=== PATIENT | male | born 1950 | race Caucasian/White ===

== ENCOUNTER 2017-06-04 06:06 | Emergency (ER) | payer OTHER ==
--- NOTE | 2017-06-04 06:38 | EDM.PDOC ---
<Ryan Garcia - Last Filed: 06/04/17 06:53> ED HPI GENERAL MEDICAL PROBLEM - General Chief Complaint: Cardiovascular Problem Stated Complaint: DIZZY/HOT FLASHES Time Seen by Provider: 06/04/17 06:21 Source of Information: Reports: Patient, Family () History Limitations: Reports: No Limitations - History of Present Illness INITIAL COMMENTS - FREE TEXT/NARRATIVE: The patient reports nausea without emesis, slight headache, decreased energy, decreased appetite, chills, and generalized body aches over the past week, getting worse. He did not check his temperature, but he believes that he has had a fever. He is afebrile here in the ED. He reports 2 episodes of watery diarrhea this morning, followed by diaphoresis and lightheadedness. He felt that he was going to pass out. He denies having associated abdominal pain or cramps. He has had a slight dry cough, but no URI symptoms, such as nasal congestion or sore throat. He also reports a heaviness sensation in his chest over the past week. He denies dyspnea at rest or with exertion. No urinary symptoms. No palpitations. No recent weight gain or weight loss. No prior similar symptoms. The patient spoke to his PCP, Karin Garduno, yesterday, although he did not see her physically. She ordered blood work - reviewing recent lab results in the computer, it appears that the patient had a CMP, CPK, and PSA obtained. His anion gap was elevated at 17, but with a normal bicarbonate of 23. His BUN was slightly elevated at 23 with a normal creatinine of 1.1. His CPK was normal. His PSA was elevated at 7.3, approximately at his baseline. The patient states that he took some [id number] Mucinex last night, without relief of symptoms. The patient did receive an influenza vaccine this season. - Related Data Allergies Allergy/AdvReac Type Severity Reaction Status Date / Time hydrocodone Allergy Headache Verified 06/04/17 06:18 lisinopril Allergy Cough Verified 08/17/13 09:42 Home Meds: Home Meds Aspirin [Jenny Chewable] 81 mg PO DAILY 07/14/13 [History] Losartan [Cozaar] 50 mg PO DAILY 07/14/13 [History] Santos Men 50 Plus 1 tab PO DAILY 05/02/14 [History] Santos Red Krill Oil 1 tab PO DAILY 07/14/13 [History] Metoprolol Tartrate 25 mg PO BID 07/14/13 [History] Ascorbic Acid [Vitamin C] 1,000 mg PO BID 06/04/17 [History] Hydrochlorothiazide 12.5 mg PO DAILY 06/04/17 [History] Ondansetron [Zofran ODT] 4 mg PO Q6H PRN #20 tab.dis 06/04/17 [Rx] Rosuvastatin [Crestor] 10 mg PO DAILY 06/04/17 [History] Ubidecarenone [Co Q-10] 100 mg PO DAILY 06/04/17 [History] Past Medical History Cardiovascular History: Reports: High Cholesterol, Hypertension Musculoskeletal History: Reports: Osteoarthritis - Past Surgical History Musculoskeletal Surgical History: Reports: Knee Replacement (bilateral) Social & Family History - Tobacco Use Smoking Status *Q: Never Smoker Second Hand Smoke Exposure: No - Alcohol Use Alcohol Use History: Yes Days Per Week of Alcohol Use: 0 Alcohol Use Frequency: Socially - Recreational Drug Use Recreational Drug Use: No - Living Situation & Occupation Living situation: Reports: , with Spouse 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 ED EXAM, GENERAL - Physical Exam Exam: See Below Exam Limited By: No Limitations General Appearance: Alert, WD/WN, No Apparent Distress Eye Exam: Bilateral Eye: Normal Inspection Ears: Normal External Exam, Hearing Grossly Normal Nose: Normal Inspection, No Blood Throat/Mouth: Normal Inspection, Normal Lips, Normal Voice, No Airway Compromise Head: Atraumatic, Normocephalic Neck: Normal Inspection, Full Range of Motion Respiratory/Chest: No Respiratory Distress, Lungs Clear, Normal Breath Sounds, No Accessory Muscle Use Cardiovascular: Normal Peripheral Pulses, Regular Rate, Rhythm, No Edema, No Gallop, No JVD, No Murmur, No Rub GI/Abdominal: Normal Bowel Sounds, Soft, Non-Tender, No Organomegaly, No Distention, No Abnormal Bruit, No Mass (Male) Exam: Deferred Rectal (Males) Exam: Deferred Back Exam: Normal Inspection, Full Range of Motion, NT Extremities: Normal Inspection, Normal Range of Motion, No Pedal Edema, Normal Capillary Refill Neurological: Alert, Oriented, Normal Cognition, No Motor/Sensory Deficits Psychiatric: Normal Affect Skin Exam: Warm, Dry, Intact, Normal Color, No Rash EKG INTERPRETATION EKG Date: 06/04/17 Time: 06:42 Rhythm: NSR Rate (Beats/Min): 81 [place]: Normal P-Wave: Present QRS: Normal (Late transition) ST-T: Normal QT: Normal Comparison: No Change (07/14/2013) Course - Vital Signs Last Recorded V/S: Last Vital Signs Temp 98.9 F 06/04/17 06:13 Pulse 87 06/04/17 06:13 Resp 22 H 06/04/17 06:13 BP 119/76 06/04/17 06:13 Pulse Ox 93 L 06/04/17 06:13 Orthostatic Blood Pressure [ 96/60 Standing] Orthostatic Blood Pressure [ 107/63 Supine] - Orders/Labs/Meds Orders: Active Orders 24 hr Category Date Time Status EKG Documentation Completion [RC] STAT Care 06/04/17 06:32 Active CULTURE BLOOD [BC] Stat Lab 06/04/17 06:55 Received CULTURE BLOOD [BC] Stat Lab 06/04/17 07:06 Received Sodium Chloride 0.9% [Normal Saline] 1,000 ml Med 06/04/17 06:45 Active IV ASDIRECTED Blood Culture x2 Reflex Set [OM.PC] Stat Oth 06/04/17 06:32 Ordered Medication Orders Sodium Chloride (Normal Saline) 1,000 mls @ 150 mls/hr IV ASDIRECTED NIKOS Last Admin: 06/04/17 06:42 Dose: 150 mls/hr Labs: Laboratory Tests 06/04/17 06/04/17 06/04/17 Range/Units 06:32 06:41 06:41 WBC 11.38 H (4.23-9.07) K/mm3 RBC 4.72 (4.63-6.08) M/mm3 Hgb 15.0 (13.7-17.5) gm/L Hct 44.7 (40.1-51.0) % MCV 94.7 H (79.0-92.2) fl MCH 31.8 (25.7-32.2) pg MCHC 33.6 (32.2-35.5) g/dl RDW Std Deviation 45.9 H (35.1-43.9) fL Plt Count 107 L (163-337) K/mm3 MPV 10.8 (9.4-12.3) fl Neutrophils % (Manual) 74 H (40-60) % Band Neutrophils % 9 (0-10) % Lymphocytes % (Manual) 11 L (20-40) % Atypical Lymphs % 0 % Monocytes % (Manual) 6 (2-10) % Eosinophils % (Manual) 0 L (0.8-7.0) % Basophils % (Manual) 0 L (0.2-1.2) Platelet Estimate See note RBC Morph Comment Not Reportable PT 10.6 (8.0-13.0) SECONDS INR 0.99 APTT 29 (22-36) SECONDS D-Dimer, Quantitative 0.28 (0.19-0.59) mg/L Puncture Site Rt radial ABG pH 7.42 (7.35-7.45) ABG pCO2 34.9 L (35.0-45.0) mmHg ABG pO2 64.0 L (80.0-100.0) mmHg ABG HCO3 22.1 (22.0-26.0) meq/L ABG O2 Saturation 93.0 L (96.0-97.0) % ABG Base Excess -1.2 (-2-2.0) Patrick Test Positive A-a Gradient 27 mmHg Sodium (136-145) mEq/L Potassium (3.5-5.1) mEq/L Chloride (98-107) mEq/L Carbon Dioxide (21-32) mEq/L Anion Gap (5-15) BUN (7-18) mg/dL Creatinine (0.7-1.3) mg/dL Est Cr Clr Drug Dosing mL/min Estimated GFR (MDRD) (>60) mL/min BUN/Creatinine Ratio (14-18) Glucose (80-115) mg/dL Lactic Acid (0.4-2.0) mmol/L Calcium (8.5-10.1) mg/dL Magnesium (1.8-2.4) mg/dl Total Bilirubin (0.2-1.0) mg/dL AST (15-37) U/L ALT (16-63) U/L Alkaline Phosphatase (46-116) U/L Troponin I (0.00-0.056) ng/mL Total Protein (6.4-8.2) g/dl Albumin (3.4-5.0) g/dl Globulin gm/dL Albumin/Globulin Ratio (1-2) Urine Color (Yellow) Urine Appearance (Clear) Urine pH (5.0-8.0) Ur Specific [place] (1.005-1.030) Urine Protein (Negative) Urine Glucose (UA) (Negative) Urine Ketones (Negative) Urine Occult Blood (Negative) Urine Nitrite (Negative) Urine Bilirubin (Negative) Urine Urobilinogen (0.2-1.0) Ur Leukocyte Esterase (Negative) Urine RBC (0-5) /hpf Urine WBC (0-5) /hpf Ur Epithelial Cells (0-5) /hpf Urine Bacteria (FEW) /hpf Urine Mucus (FEW) /hpf 06/04/17 06/04/17 06/04/17 Range/Units 06:41 07:06 08:05 WBC (4.23-9.07) K/mm3 RBC (4.63-6.08) M/mm3 Hgb (13.7-17.5) gm/L Hct (40.1-51.0) % MCV (79.0-92.2) fl MCH (25.7-32.2) pg MCHC (32.2-35.5) g/dl RDW Std Deviation (35.1-43.9) fL Plt Count (163-337) K/mm3 MPV (9.4-12.3) fl Neutrophils % (Manual) (40-60) % Band Neutrophils % (0-10) % Lymphocytes % (Manual) (20-40) % Atypical Lymphs % % Monocytes % (Manual) (2-10) % Eosinophils % (Manual) (0.8-7.0) % Basophils % (Manual) (0.2-1.2) Platelet Estimate RBC Morph Comment PT (8.0-13.0) SECONDS INR APTT (22-36) SECONDS D-Dimer, Quantitative (0.19-0.59) mg/L Puncture Site ABG pH (7.35-7.45) ABG pCO2 (35.0-45.0) mmHg ABG pO2 (80.0-100.0) mmHg ABG HCO3 (22.0-26.0) meq/L ABG O2 Saturation (96.0-97.0) % ABG Base Excess (-2-2.0) Patrick Test A-a Gradient mmHg Sodium 138 (136-145) mEq/L Potassium 3.9 (3.5-5.1) mEq/L Chloride 102 (98-107) mEq/L Carbon Dioxide 25 (21-32) mEq/L Anion Gap 14.9 (5-15) BUN 23 H (7-18) mg/dL Creatinine 1.2 (0.7-1.3) mg/dL Est Cr Clr Drug Dosing 64.49 mL/min Estimated GFR (MDRD) > 60 (>60) mL/min BUN/Creatinine Ratio 19.2 H (14-18) Glucose 114 (80-115) mg/dL Lactic Acid 1.1 (0.4-2.0) mmol/L Calcium 8.9 (8.5-10.1) mg/dL Magnesium 2.1 (1.8-2.4) mg/dl Total Bilirubin 0.6 (0.2-1.0) mg/dL AST 20 (15-37) U/L ALT 35 (16-63) U/L Alkaline Phosphatase 55 (46-116) U/L Troponin I < 0.017 (0.00-0.056) ng/mL Total Protein 7.6 (6.4-8.2) g/dl Albumin 3.8 (3.4-5.0) g/dl Globulin 3.8 gm/dL Albumin/Globulin Ratio 1.0 (1-2) Urine Color Yellow (Yellow) Urine Appearance Clear (Clear) Urine pH 5.5 (5.0-8.0) Ur Specific [place] > or = 1.030 (1.005-1.030) Urine Protein 1+ H (Negative) Urine Glucose (UA) Negative (Negative) Urine Ketones Trace H (Negative) Urine Occult Blood Negative (Negative) Urine Nitrite Negative (Negative) Urine Bilirubin Negative (Negative) Urine Urobilinogen 0.2 (0.2-1.0) Ur Leukocyte Esterase Negative (Negative) Urine RBC Not seen (0-5) /hpf Urine WBC 0-5 (0-5) /hpf Ur Epithelial Cells Not seen (0-5) /hpf Urine Bacteria Few (FEW) /hpf Urine Mucus Many H (FEW) /hpf Meds: Medications Generic Name Dose Route Start Last Admin Trade Name Freq PRN Reason Stop Dose Admin Sodium Chloride 1,000 mls @ 150 mls/hr 06/04/17 06:45 06/04/17 06:42 Normal Saline IV 150 mls/hr ASDIRECTED NIKOS Administration Discontinued Medications Generic Name Dose Route Start Last Admin Trade Name Shorty PRN Reason Stop Dose Admin Sodium Chloride 1,000 mls @ 1,000 mls/hr 06/04/17 08:07 Normal Saline IV 06/04/17 09:06 ONETIME ONE - Re-Assessments/Exams Free Text/Narrative Re-Assessment/Exam: 06/04/17 06:35 The patient is not orthostatic. 06/04/17 07:[address] Krishnan, and care of the patient turned over to him at this time, for change of shift. Departure - Departure Disposition: Home, Self-Care 01 Clinical Impression: Gastroenteritis, Dehydration Diarrhea Qualifiers: Diarrhea type: unspecified type Qualified Code(s): R19.7 - Diarrhea, unspecified Prescriptions: Ondansetron [Zofran ODT] 4 mg PO Q6H PRN #20 tab.dis PRN Reason: Nausea\vomiting Referrals: aKrin Garduno PA-C [Primary Care Provider] - 1 Week Forms: ED Department Discharge Additional Instructions: Take the zofran every 6 hours as needed for nausea or vomiting. Do not take your hydrochlorothiazide. Drink plenty of fluids. Take your blood pressure periodically over the next few days. Follow up with Christelle Garduno within the week. Please return if you are worse. <Edward Krishnan A - Last Filed: 06/04/17 09:17> Course - Re-Assessments/Exams Free Text/Narrative Re-Assessment/Exam: 06/04/17 09:[address] Garcia. His WBC was elevated at 11.38. His PT, INR, PTT, and D-dimer is negative. His BUN was elevated at 23. His BUN/creatinine ration was elevated at 19.2. His troponin was negative. His EKG shows a NSR with no acute changes. His UA shows no UTI but he does have trace ketones. I ordered a bolus of NS. He feels better and his BP is better. I feel he has a gastroenteritis with nausea and diarrhea. This was causing poor intake and volume depletion. I called Christelle Garduno and let her know what happened and what we found. I will have him stop his HCTZ and take zofran and drink plenty of fluids. Departure - Departure Time of Disposition: 09:15 Condition: Good
[2017-06-04] MEDS ORDERED: Sodium Chloride 0.9% 1,000 ML IV SCH (06:45)
[2017-06-04] MEDS ORDERED: Sodium Chloride 0.9% 1,000 ML IV ONE (08:07)
--- NOTE | 2017-06-04 08:28 | CR ---
Chest: 2 views of the chest are obtained. Comparison: Prior chest x-ray of 05/14/15. Heart size is normal. Mild tortuosity of the thoracic aorta is seen. Overlying monitor leads are present. Minimal atelectasis within the left base is seen. Lungs otherwise are clear. Slight degenerative spurring is noted within the spine. Impression: 1. Incidental findings. Nothing acute is seen on 2 view chest x-ray. Diagnostic code #2
== END 2017-06-04 09:30 | disposition home or self-care (01) ==
LOC: JD.ED 06:06
DX: K52.9 Noninfective gastroenteritis and colitis, unspecified (principal); I10 Essential (primary) hypertension; E78.00 Pure hypercholesterolemia, unspecified; Z88.5 Allergy status to narcotic agent; Z79.899 Other long term (current) drug therapy; Z79.82 Long term (current) use of aspirin
CPT/HCPCS: 36415; 36600; 71046; 80053; 81001; 82803; 83605; 83735; 84484; 85025; 85379; 85610; 85730; 87040; 87804; 93005; 96360; 96361; 99284; J7040; 93010; 99283-25

== ENCOUNTER 2019-11-30 08:49 | Day surgery (SDC) | payer MEDICARE, OTHER ==
[~2019-11-30 08:49] MED LIST: Lactated Ringers 1,000 ML IV SCH; Lidocaine 1% 2 ML SDV ONE; Lidocaine 1%/Sod Bicarbonate in NS 8.4% 1 ML Syringe IDERM PRN; Propofol 200 MG/20 ML SDV ONE; Sodium Chloride 0.9% 10 ML Syringe FLUSH PRN; fentaNYL 100 MCG/2 ML SDV ONE
--- NOTE | 2019-11-30 08:59 | PCM.PREANE ---
Preanesthetic Assessment - Procedure Proposed Procedure: diagnostic colonoscopy - Anesthesia/Transfusion/Family Hx Anesthesia History: Prior Anesthesia Reaction Type of Anesthesia Reaction: Excessive Nausea/Vomiting Family History of Anesthesia Reaction: No Transfusion History: No Prior Transfusion(s) - Review of Systems General: No Symptoms Pulmonary: No Symptoms Cardiovascular: Other (high bp and high chol) Gastrointestinal: No Symptoms Neurological: No Symptoms Other: Reports: None - Physical Assessment NPO Status Date: 11/30/19 NPO Status Time: 04:00 Vital Signs: 135/65 80 96% 16 97.8 Height: 5 ft 11 in Weight: 87.3 kg ASA Class: 2 Mental Status: Alert & Oriented x3 Airway Class: Mallampati = 1 Dentition: Reports: Normal Dentition Thyro-Mental Finger Breadths: 3 Mouth Opening Finger Breadths: 3 ROM/Head Extension: Full Lungs: Clear to Auscultation, Normal Respiratory Effort Cardiovascular: Regular Rate, Regular Rhythm - Allergies Allergies/Adverse Reactions: Allergies Allergy/AdvReac Type Severity Reaction Status Date / Time hydrocodone Allergy Headache Verified 11/29/19 12:58 lisinopril Allergy Cough Verified 11/29/19 12:58 - Blood Blood Available: No - Anesthesia Plan Pre-Op Medication Ordered: None Beta Idalia: Metoprolol Med Last Dose Date: 11/29/19 Med Last Dose Time: 07:00 - Acknowledgements Anesthesia Type Planned: MAC Pt an Appropriate Candidate for the Planned Anesthesia: Yes Alternatives and Risks of Anesthesia Discussed w Pt/Guardian: Yes Pt/Guardian Understands and Agrees with Anesthesia Plan: Yes PreAnesthesia Questionnaire - Past Health History Medical/Surgical History: Denies Medical/Surgical History Cardiovascular History: Reports: High Cholesterol, Hypertension Respiratory History: Reports: None Gastrointestinal History: Reports: None Musculoskeletal History: Reports: Osteoarthritis Psychiatric History: Reports: None Oncologic (Cancer) History: Reports: None - Past Surgical History Musculoskeletal Surgical History: Reports: Knee Replacement (bilateral) - SUBSTANCE USE Smoking Status *Q: Never Smoker Tobacco Use Within Last Twelve Months: No Second Hand Smoke Exposure: No Days Per Week of Alcohol Use: 0 Recreational Drug Use History: No - HOME MEDS Home Medications: Home Meds Aspirin [Jenny Chewable] 81 mg PO DAILY 07/14/13 [History] Metoprolol Tartrate 25 mg PO BID 07/14/13 [History] Ondansetron [Zofran ODT] 4 mg PO Q6H PRN #20 tab.dis 06/04/17 [Rx] Rosuvastatin [Crestor] 10 mg PO DAILY 06/04/17 [History] Ubidecarenone [Co Q-10] 100 mg PO DAILY 06/04/17 [History] Ascorbic Acid [Vitamin C] 1,000 mg PO DAILY 11/29/19 [History] Fish Oil/Reeves-3 Fatty Acids [Fish Oil 1,000 MG] 1 gm PO DAILY 11/29/19 [History] Glucosam/Chondr/Collagn/Hyalur [Glucosamine & Chondroitin Cap] 1 cap PO DAILY 11/29/19 [History] LORazepam [Lorazepam] 1 mg PO ASDIRECTED PRN 11/29/19 [History] Multivitamin 1 tab PO DAILY 11/29/19 [History] Valsartan 320 mg PO DAILY 11/29/19 [History] amLODIPine Besylate [Norvasc] 2.5 mg PO DAILY 11/29/19 [History] - CURRENT (IN HOUSE) MEDS Current Meds: Current Medications Lactated Ringer's (Ringers, Lactated) 1,000 mls @ 125 mls/hr IV ASDIRECTED NIKOS Stop: 11/30/19 23:00 Lidocaine/Sodium Bicarbonate (Buffered Lidocaine 1% In Ns 8.4%) 0.25 ml IDERM ONETIME PRN PRN Reason: Prior to IV Start Stop: 11/30/19 18:00 Sodium Chloride (Saline Flush) 10 ml FLUSH ASDIRECTED PRN PRN Reason: Keep Vein Open Stop: 11/30/19 18:00 Discontinued Medications Fentanyl (Sublimaze) Confirm Administered Dose 100 mcg .ROUTE .STK-MED ONE Stop: 11/30/19 06:48 Lidocaine HCl (Lidocaine 1%) Confirm Administered Dose 4 ml .ROUTE .STK-MED ONE Stop: 11/30/19 06:48 Propofol (Diprivan 20 Ml) Confirm Administered Dose 200 mg .ROUTE .STK-MED ONE Stop: 11/30/19 06:48
[2019-11-30] MEDS ORDERED: Ondansetron 4 MG/2 ML SDV ONE (09:56)
[2019-11-30] MEDS ORDERED: diphenhydrAMINE 50 MG/ML SDV IVPUSH PRN (10:02)
[2019-11-30] MEDS ORDERED: Ondansetron 4 MG/2 ML SDV IVPUSH PRN (10:02)
[2019-11-30] MEDS ORDERED: Propofol 200 MG/20 ML SDV ONE ×2 (10:04→10:35)
[2019-11-30] MEDS ORDERED: Lactated Ringers 1,000 ML ONE (10:45)
--- NOTE | 2019-11-30 11:00 | PCM.PRNOTE ---
- Free Text/Narrative Note: Date: 11/30/2019 Procedure: diagnostic colonoscopy Indication: positive Cologuard screening test Endoscopist: Dewey Tanner MD Findings: Cecum reached with colonoscope. Prep was excellent. A total of 4 polyps were identified. The first was less than 1 cm, near the appendiceal orifice. The next was in the ascending colon, with sessile appearance, spanning about 1.5 cm. This was removed piecemeal and fulgurated. A large, fungating polyp not amenable to endoscopic resection was identified about 70 cm from the verge. Several biopsies were obtained and tattoo ink was injected submucosally just distal to the lesion. Another large polyp, measuring about 3 cm, was removed piecemeal using the hot snare. It appeared that the lesion was completely removed. Tattoo ink was used to milena the distal aspect. This was about 15 cm from the anal verge. Detailed Report: The patient was taken to the endoscopy suite and placed in left lateral decubitus position. Time out was performed and monitored anesthesia care was initiated. Visual inspection of the anus revealed no abnormality. Digital rectal exam was unremarkable. The lubricated colonoscope was then inserted and advanced all the way to the cecum. The ileocecal valve and appendiceal orifice were visualized. The prep was excellent. On slow withdrawal of the scope, mucosal surfaces were carefully inspected. Four polyps were identified as described above, with two being more worrisome for dysplasia or malignancy. The one lesion about 70 cm from the anal verge was not amenable to complete endoscopic resection given its size and span, about 25% of the circumference of the lumen. On retroflexion within the rectum no abnormalities were noted. There was some minor diverticular disease throughout the colon. Air was suctioned prior to removal of the scope. The patient tolerated the procedure well.
--- NOTE | 2019-11-30 11:05 | PCM48HPAN ---
Post Anesthesia Note - EVALUATION WITHIN 48HRS OF ANESTHETIC Vital Signs in Normal Range: Yes Patient Participated in Evaluation: Yes Respiratory Function Stable: Yes Airway Patent: Yes Cardiovascular Function Stable: Yes Hydration Status Stable: Yes Pain Control Satisfactory: Yes Nausea and Vomiting Control Satisfactory: Yes Mental Status Recovered: Yes
== END 2019-11-30 11:33 | disposition home or self-care (01) ==
LOC: JD.SDS 08:49
PROVIDERS: ATTEND Surgery
DX: D12.0 Benign neoplasm of cecum (principal); D12.2 Benign neoplasm of ascending colon; D12.3 Benign neoplasm of transverse colon; D12.8 Benign neoplasm of rectum; K57.30 Diverticulosis of large intestine without perforation or abscess without bleeding; E78.5 Hyperlipidemia, unspecified; E78.00 Pure hypercholesterolemia, unspecified; I10 Essential (primary) hypertension; Z88.5 Allergy status to narcotic agent; Z88.8 Allergy status to other drugs, medicaments and biological substances; Z79.899 Other long term (current) drug therapy
CPT/HCPCS: 45380; 45381; 45385; J2001; J2370; J2405; J2704; J3010; J7120; 00811

== ENCOUNTER 2019-12-02 02:39 | Emergency (ER) | payer MEDICARE, OTHER ==
[2019-12-02] MEDS ORDERED: HYDROmorphone 1 MG/ML Syringe IVPUSH STA (03:17)
[2019-12-02] MEDS ORDERED: Ondansetron 4 MG/2 ML SDV IVPUSH ONE ×2 (03:17→06:32)
--- NOTE | 2019-12-02 03:25 | EDM.PDOC ---
ED HPI GENERAL MEDICAL PROBLEM - General Chief Complaint: Abdominal Pain Stated Complaint: [facility] Time Seen by Provider: 12/02/19 02:50 Source of Information: Reports: Patient History Limitations: Reports: No Limitations - History of Present Illness INITIAL COMMENTS - FREE TEXT/NARRATIVE: Mr. Crowe is a very pleasant 69-year-old gentleman who now presents to the ED by EMS with right lower quadrant pain. He states that he first developed the pain yesterday afternoon, 12/01/2019, while walking. Over time, the pain improved, although did not entirely resolve. He then woke up around 01:30 this morning with much more severe pain, along with some watery diarrhea and nausea. He describes the pain as sharp in character. It is constant, although he states that it improved after EMS gave him 1 mg of Dilaudid en route to the ED. he has not identified any other modifiers. The pain does not radiate, and he denies having any pain in his right flank. No associated fever, constipation, diarrhea, or urinary symptoms. No prior similar symptoms. The patient states that he took 2 tablets of Tylenol yesterday afternoon, then another 2 tablets before going to bed. He did not take anything this morning. Here in the ED, the patient's initial BP is found to be mildly elevated at 144/85, otherwise, he is hemodynamically stable, afebrile, saturating 87% on room air, 96% on 2 L of oxygen per nasal cannula. The patient does not have any underlying lung disease, and does not take supplemental oxygen at home. Other than the patient's right lower quadrant pain and nausea, the patient denies having a recent fever, chills, sore throat, ear pain, nasal or sinus congestion, cough, dyspnea, chest pain, palpitations, vomiting, constipation, diarrhea, urinary symptoms, recent weight gain or weight loss, recent bloody bowel movements or black bowel movements, recent joint aches, headaches, or rashes. The patient's PCP is BRIELLE Bray. His Urologist is Dr. Rian Ppoe. Right Abdominal Pain Score (Numeric/FACES): 8 - Related Data Allergies Allergy/AdvReac Type Severity Reaction Status Date / Time hydrocodone Allergy Headache Verified 12/02/19 02:50 lisinopril Allergy Cough Verified 12/02/19 02:50 Home Meds: Home Meds Aspirin [Jenny Chewable] 81 mg PO DAILY 07/14/13 [History] Metoprolol Tartrate 25 mg PO BID 07/14/13 [History] Ondansetron [Zofran ODT] 4 mg PO Q6H PRN #20 tab.dis 06/04/17 [Rx] Rosuvastatin [Crestor] 10 mg PO DAILY 06/04/17 [History] Ubidecarenone [Co Q-10] 100 mg PO DAILY 06/04/17 [History] Ascorbic Acid [Vitamin C] 1,000 mg PO DAILY 11/29/19 [History] Fish Oil/[place]-3 Fatty Acids [Fish Oil 1,000 MG] 1 gm PO DAILY 11/29/19 [History] Glucosam/Chondr/Collagn/Hyalur [Glucosamine & Chondroitin Cap] 1 cap PO DAILY 11/29/19 [History] LORazepam [Lorazepam] 1 mg PO ASDIRECTED PRN 11/29/19 [History] Multivitamin 1 tab PO DAILY 11/29/19 [History] Valsartan 320 mg PO DAILY 11/29/19 [History] amLODIPine Besylate [Norvasc] 2.5 mg PO DAILY 11/29/19 [History] Past Medical History Cardiovascular History: Reports: High Cholesterol, Hypertension Gastrointestinal History: Reports: Colon Polyp Musculoskeletal History: Reports: Osteoarthritis Psychiatric History: Reports: Anxiety Oncologic (Cancer) History: Reports: Prostate (low [place] grade - being observed) - Past Surgical History GI Surgical History: Reports: Colonoscopy (with polypectomy) Musculoskeletal Surgical History: Reports: Knee Replacement (bilateral) Oncologic Surgical History: Reports: Other (See Below) (Prostate biopsy) Social & Family History - Tobacco Use Smoking Status *Q: Never Smoker - Alcohol Use Alcohol Use History: Yes Alcohol Use Frequency: Rarely - Recreational Drug Use Recreational Drug Use: No - Living Situation & Occupation Living situation: Reports: , with Spouse Occupation: Retired ED ROS GENERAL - Review of Systems Review Of Systems: Comprehensive ROS is negative, except as noted in HPI. ED EXAM, GI/ABD - Physical Exam Exam: See Below Exam Limited By: No Limitations General Appearance: Alert, WD/WN, No Apparent Distress Eyes: Bilateral: Normal Appearance, EOMI Ears: Normal External Exam, Hearing Grossly Normal Nose: Normal Inspection Throat/Mouth: Normal Inspection, Normal Voice, No Airway Compromise, Other (wearing a KN95 mask) Head: Atraumatic, Normocephalic Neck: Normal Inspection, Full Range of Motion Respiratory/Chest: No Respiratory Distress, Lungs Clear, Normal Breath Sounds, No Accessory Muscle Use Cardiovascular: Normal Peripheral Pulses, Regular Rate, Rhythm, No Edema, No Gallop, No JVD, No Murmur, No Rub GI/Abdominal Exam: Normal Bowel Sounds, Soft, No Organomegaly, No Distention, No Abnormal Bruit, No Mass, Rigid (RLQ. None elsewhere if the patient was asked to relax, but he could not relax for palpation of the RLQ.), Tender (Right lower quadrant only. Nontender elsewhere. Obturator sign negative. Unable to perform psoas sign due to patient stiffness. Heel drop sign equivocal, but the patient does report pain when upright.) (Male) Exam: Deferred Rectal (Males) Exam: Deferred Back Exam: Normal Inspection, Full Range of Motion. No: CVA Tenderness (L), CVA Tenderness (R) Extremities: Normal Inspection, No Pedal Edema, Normal Capillary Refill, Limited Range of Motion (unable to extend either hip, likely due to pain) Neurological: Alert, Oriented, Normal Cognition, No Motor/Sensory Deficits, Other (Resting tremor noted in left hand. The patient states that it is due to pain.) Psychiatric: Normal Affect Skin Exam: Warm, Dry, Intact, Normal Color, No Rash Course - Vital Signs Last Recorded V/S: Last Vital Signs Temp 36.7 C 12/02/19 02:40 Pulse 77 12/02/19 02:40 Resp 18 12/02/19 02:40 BP 144/85 H 12/02/19 02:40 Pulse Ox 87 L 12/02/19 02:40 - Orders/Labs/Meds Labs: Laboratory Tests 12/02/19 12/02/19 12/02/19 Range/Units 03:30 03:30 05:16 WBC 9.96 H (4.23-9.07) K/mm3 RBC 4.64 (4.63-6.08) M/mm3 Hgb 14.9 (13.7-17.5) gm/dl Hct 44.6 (40.1-51.0) % MCV 96.1 H (79.0-92.2) fl MCH 32.1 (25.7-32.2) pg MCHC 33.4 (32.2-35.5) g/dl RDW Std Deviation 46.4 H (35.1-43.9) fL Plt Count 136 L (163-337) K/mm3 MPV 10.5 (9.4-12.3) fl Neutrophils % (Manual) 77 H (40-60) % Band Neutrophils % 0 (0-10) % Lymphocytes % (Manual) 16 L (20-40) % Atypical Lymphs % 0 % Monocytes % (Manual) 7 (2-10) % Eosinophils % (Manual) 0 L (0.8-7.0) % Basophils % (Manual) 0 L (0.2-1.2) Platelet Estimate Adequate Anisocytosis 1+ slight RBC Morph Comment Abnormal Sodium 144 (136-145) mEq/L Potassium 3.8 (3.5-5.1) mEq/L Chloride 105 (98-107) mEq/L Carbon Dioxide 27 (21-32) mEq/L Anion Gap 15.8 H (5-15) BUN 16 (7-18) mg/dL Creatinine 1.3 (0.7-1.3) mg/dL Est Cr Clr Drug Dosing 57.92 mL/min Estimated GFR (MDRD) 55 (>60) mL/min BUN/Creatinine Ratio 12.3 L (14-18) Glucose 123 H (80-115) mg/dL Calcium 8.8 (8.5-10.1) mg/dL Total Bilirubin 0.8 (0.2-1.0) mg/dL AST 17 (15-37) U/L ALT 21 (16-63) U/L Alkaline Phosphatase 55 (46-116) U/L Total Protein 7.2 (6.4-8.2) g/dl Albumin 3.6 (3.4-5.0) g/dl Globulin 3.6 gm/dL Albumin/Globulin Ratio 1.0 (1-2) Urine Color Yellow (Yellow) Urine Appearance Clear (Clear) Urine pH 6.5 (5.0-8.0) Ur Specific Amo 1.025 (1.005-1.030) Urine Protein Negative (Negative) Urine Glucose (UA) Negative (Negative) Urine Ketones Trace H (Negative) Urine Occult Blood Negative (Negative) Urine Nitrite Negative (Negative) Urine Bilirubin Negative (Negative) Urine Urobilinogen 0.2 (0.2-1.0) Ur Leukocyte Esterase Negative (Negative) Urine RBC 0-5 (0-5) /hpf Urine WBC 0-5 (0-5) /hpf Ur Squamous Epith Cells 0-5 (0-5) /hpf Urine Bacteria Few (FEW) /hpf Urine Mucus Rare (FEW) /hpf SARS-CoV-2 RNA (GRACE) (NEGATIVE) 12/02/19 Range/Units 05:51 WBC (4.23-9.07) K/mm3 RBC (4.63-6.08) M/mm3 Hgb (13.7-17.5) gm/dl Hct (40.1-51.0) % MCV (79.0-92.2) fl MCH (25.7-32.2) pg MCHC (32.2-35.5) g/dl RDW Std Deviation (35.1-43.9) fL Plt Count (163-337) K/mm3 MPV (9.4-12.3) fl Neutrophils % (Manual) (40-60) % Band Neutrophils % (0-10) % Lymphocytes % (Manual) (20-40) % Atypical Lymphs % % Monocytes % (Manual) (2-10) % Eosinophils % (Manual) (0.8-7.0) % Basophils % (Manual) (0.2-1.2) Platelet Estimate Anisocytosis RBC Morph Comment Sodium (136-145) mEq/L Potassium (3.5-5.1) mEq/L Chloride (98-107) mEq/L Carbon Dioxide (21-32) mEq/L Anion Gap (5-15) BUN (7-18) mg/dL Creatinine (0.7-1.3) mg/dL Est Cr Clr Drug Dosing mL/min Estimated GFR (MDRD) (>60) mL/min BUN/Creatinine Ratio (14-18) Glucose (80-115) mg/dL Calcium (8.5-10.1) mg/dL Total Bilirubin (0.2-1.0) mg/dL AST (15-37) U/L ALT (16-63) U/L Alkaline Phosphatase (46-116) U/L Total Protein (6.4-8.2) g/dl Albumin (3.4-5.0) g/dl Globulin gm/dL Albumin/Globulin Ratio (1-2) Urine Color (Yellow) Urine Appearance (Clear) Urine pH (5.0-8.0) Ur Specific Amo (1.005-1.030) Urine Protein (Negative) Urine Glucose (UA) (Negative) Urine Ketones (Negative) Urine Occult Blood (Negative) Urine Nitrite (Negative) Urine Bilirubin (Negative) Urine Urobilinogen (0.2-1.0) Ur Leukocyte Esterase (Negative) Urine RBC (0-5) /hpf Urine WBC (0-5) /hpf Ur Squamous Epith Cells (0-5) /hpf Urine Bacteria (FEW) /hpf Urine Mucus (FEW) /hpf SARS-CoV-2 RNA (GRACE) Negative (NEGATIVE) Meds: Medications Discontinued Medications Generic Name Dose Route Start Last Admin Trade Name Freq PRN Reason Stop Dose Admin Diatrizoate Meglum/Diatrizoate Sod 120 ml 12/02/19 05:12 12/02/19 05:13 Gastrografin 37% PO 12/02/19 05:13 120 ml ONETIME ONE Administration Hydromorphone HCl 0.5 mg 12/02/19 03:17 12/02/19 03:29 Dilaudid IVPUSH 12/02/19 03:18 0.5 mg ONETIME STA Administration Hydromorphone HCl 1 mg 12/02/19 04:05 12/02/19 04:13 Dilaudid IVPUSH 12/02/19 04:06 1 mg ONETIME ONE Administration Hydromorphone HCl 1 mg 12/02/19 06:13 12/02/19 06:30 Dilaudid IVPUSH 12/02/19 06:14 1 mg ONETIME ONE Administration Sodium Chloride 1,000 mls @ 150 mls/hr 12/02/19 03:30 12/02/19 03:29 Normal Saline IV 150 mls/hr ASDIRECTED NIKOS Administration Ertapenem 1 gm/ Sodium 50 mls @ 100 mls/hr 12/02/19 05:47 12/02/19 06:19 Chloride IV 12/02/19 06:16 100 mls/hr ONETIME STA Administration Iopamidol 100 ml 12/02/19 05:12 12/02/19 05:13 Isovue-370 (76%) IVPUSH 12/02/19 05:13 100 ml ONETIME ONE Administration Ondansetron HCl 4 mg 12/02/19 03:17 12/02/19 03:28 Zofran IVPUSH 12/02/19 03:18 4 mg ONETIME ONE Administration Ondansetron HCl Confirm 12/02/19 06:30 12/02/19 06:45 Zofran Administered 12/02/19 06:31 Not Given Dose 4 mg .ROUTE .STK-MED ONE Ondansetron HCl 4 mg 12/02/19 06:32 12/02/19 06:28 Zofran IVPUSH 12/02/19 06:33 4 mg ONETIME ONE Administration - Re-Assessments/Exams Free Text/Narrative Re-Assessment/Exam: 12/02/19 03:18 As above, the patient developed right lower quadrant abdominal pain yesterday afternoon, which was considerably worse around 01:30 this morning, when he woke up, associated with watery diarrhea and nausea. No recent fever. He is afebrile, but saturating 87% on room air, 96% on 2 L of oxygen per nasal cannula. No respiratory symptoms. On examination, he has reproducible tenderness to palpation of the right lower quadrant, but he is nontender elsewhere, and has no CVA tenderness. Equivocal heel drop sign. Concern is for acute appendicitis, therefore I have ordered a work-up that includes blood work, urinalysis, a CT scan of the abdomen and pelvis with oral and IV contrast, and a swab for the SARS-CoV-2 virus. In the meantime, the patient will be given IV Dilaudid, IV Zofran, and IV fluid. 12/02/19 05:42 The patient's CBC is remarkable for WBC count mildly elevated at 9.96, but with 0% bandemia. His platelets are depressed at 136,000, with the remainder of his CBC being unremarkable. His CMP is remarkable for an anion gap slightly elevated at 15.8, but with a bicarbonate normal at 27. His blood glucose is slightly elevated 123, with the remainder of his CMP being unremarkable. His urinalysis is unremarkable. 12/02/19 05:50 CT of the abdomen and pelvis with oral and IV contrast is read by Vazquez as: 1. Findings are consistent with acute appendicitis are present. Given pneumoperitoneum, ruptured appendicitis is likely. 2. Multiple hepatic lesions are present. These are most likely benign, but given the patient's history of prostate cancer (per discussion with Dr. Ryan Garcia) consider MRI of the liver. Unfortunately, we are on full diversion, therefore the patient will need to be transferred to [facility]. [facility] also on diversion. 12/02/19 05:59 Case discussed with Sissy at [facility] at 05:53. Case then discussed with Dr. Ya, Surgeon at [facility], at 05:57. He accepted the patient for transfer to their ED. The patient will go by ground ambulance. 12/02/19 06:04 I discussed the situation with the patient. He is agreeable with the plan. The results of the swab for the SARS-CoV-2 virus are still pending. 12/02/19 06:[address] images have been pushed to [facility]. 12/02/19 07:01 The patient swab for the SARS-CoV-2 virus has returned negative. Departure - Departure Time of Disposition: 06:00 Disposition: DC/Tfer to Acute Hospital 02 Condition: Good Clinical Impression: Acute perforated appendicitis - Discharge Information *PRESCRIPTION DRUG MONITORING PROGRAM REVIEWED*: Not Applicable *COPY OF PRESCRIPTION DRUG MONITORING REPORT IN PATIENT ROSARIO: Not Applicable Referrals: Karin Garduno PA-C [Physician Acute Specialist] - Rian Pope MD [Ordering Only Provider] - Forms: ED Department Discharge Sepsis Event Note (ED) - Evaluation Sepsis Screening Result: No Definite Risk - Focused Exam Vital Signs: Vital Signs Temp Pulse Resp BP Pulse Ox 12/02/19 02:40 36.7 C 77 18 144/85 H 87 L
[2019-12-02] MEDS ORDERED: Sodium Chloride 0.9% 1,000 ML IV SCH (03:30)
[2019-12-02] MEDS ORDERED: HYDROmorphone 1 MG/ML Syringe IVPUSH ONE ×2 (04:05→06:13)
[2019-12-02] MEDS ORDERED: Diatrizoate Meglumine/Diatrizoate Sodium 37% 120 ML Bottle PO ONE (05:12)
[2019-12-02] MEDS ORDERED: Iopamidol 755 Mg/ML 100 ML Bottle IVPUSH ONE (05:12)
[2019-12-02] MEDS ORDERED: Ertapenem 1 GM in Sodium Chloride 0.9% 50 ML IV STA (05:47)
[2019-12-02] MEDS ORDERED: Ondansetron 4 MG/2 ML SDV ONE (06:30)
--- NOTE | 2019-12-02 06:47 | CT ---
CT abdomen and pelvis Technique: Multiple axial sections were obtained from above the dome of the diaphragm inferiorly through the pubic symphysis. Intravenous contrast was utilized. Oral contrast is seen which remains mostly within the stomach. Delayed images were also obtained through the abdomen and pelvis. Reconstructed coronal and sagittal images were obtained. Comparison: No prior abdominal imaging is available. Findings: Increased density is noted within both posterior lung bases most likely representing areas of atelectasis. Trace right-sided pleural effusion is noted. Free air is noted anterior to the liver. Multiple low density lesions are seen within the liver. Larger abnormalities have Hounsfield unit measurements of cysts. Largest cyst is located close to the gallbladder and measuring 2.8 cm. Small gallstones are seen within the gallbladder. Adrenal glands show no nodule. Pancreas shows no discrete abnormality. Left kidney shows several small cortical lesions believed to represent minimal cysts. Delayed images shows contrast within the ureters and within the bladder. No evidence of ureteral obstruction is seen. Fat-containing umbilical hernia is noted. Small amount of free fluid is noted within the pelvis. Appendix is slightly enlarged with increased density within the tip of the appendix suspicious for appendicolith. Free air may relate to rupture of the appendix. No additional bowel abnormalities are appreciated. Bone window settings were reviewed which shows mild scattered degenerative change within the spine. No acute osseous finding is seen. Impression: 1. Increased density within both lung bases most likely representing atelectasis. 2. Appendix is slightly prominent in size measuring slightly greater than 1 cm. Free air is noted anterior to the liver which may relate to rupture of the appendix. Constellation of findings are suspicious for appendicitis. 3. Other findings believed to be incidental as described above. Diagnostic code #5 This report was dictated in MDT I agree with preliminary report from [facility], finalized on 12/02/19, 6:40 AM Central Daylight Time
== END 2019-12-02 06:38 ==
LOC: JD.ED 02:39
DX: K35.32 Acute appendicitis with perforation, localized peritonitis, and gangrene, without abscess (principal); I10 Essential (primary) hypertension; E78.00 Pure hypercholesterolemia, unspecified; Z20.828 Contact with and (suspected) exposure to other viral communicable diseases; Z88.5 Allergy status to narcotic agent; Z88.8 Allergy status to other drugs, medicaments and biological substances; Z79.82 Long term (current) use of aspirin; Z79.899 Other long term (current) drug therapy
CPT/HCPCS: 36415; 74177; 80053; 81001; 85007; 85027; 96361; 96365; 96375; 96376; 99285; J1170; J1335; J2405; J7030; J7050; Q9963; Q9967; U0002

== ENCOUNTER 2021-02-01 23:48 | Emergency (ER) | payer MEDICARE, OTHER ==
[2021-02-02] MEDS ORDERED: Lactated Ringers 1,000 ML IV ONE (00:50)
--- NOTE | 2021-02-02 00:53 | EDM.PDOC ---
ED HPI GENERAL MEDICAL PROBLEM - General Chief Complaint: Gastrointestinal Problem Stated Complaint: DIARRHEA Time Seen by Provider: 02/02/21 00:51 Source of Information: Reports: Patient History Limitations: Reports: No Limitations - History of Present Illness INITIAL COMMENTS - FREE TEXT/NARRATIVE: Patient is a 70-year-old male with a past medical history of prostate cancer and colonic resection presenting with a chief complaint of diarrhea. Patient states diarrhea has been ongoing since yesterday. He reports watery stool without blood. He reports some mild associated nausea, loss of appetite, fatigue and body aches. He otherwise denies any fevers, chills, sore throat, cough, abdominal pain, shortness of breath. He states he has been trying the drink liquids in order to stay hydrated. However, he does feel dehydrated at this point. He thinks this is due to his loss of appetite. Otherwise, patient is vaccinated against COVID-19. Abdomen Pain Score (Numeric/FACES): 2 - Related Data Allergies Allergy/AdvReac Type Severity Reaction Status Date / Time hydrocodone Allergy Headache Verified 02/02/21 00:04 lisinopril Allergy Cough Verified 02/02/21 00:04 Home Meds: Home Meds Metoprolol Tartrate 25 mg PO BID 07/14/13 [History] Ondansetron [Zofran ODT] 4 mg PO Q6H PRN #20 tab.dis 06/04/17 [Rx] Rosuvastatin [Crestor] 10 mg PO DAILY 06/04/17 [History] Ubidecarenone [Co Q-10] 100 mg PO DAILY 06/04/17 [History] Fish Oil/[place]-3 Fatty Acids [Fish Oil 1,000 MG] 1 gm PO DAILY 11/29/19 [History] Glucosam/Chondr/Collagn/Hyalur [Glucosamine & Chondroitin Cap] 1 cap PO DAILY 11/29/19 [History] Multivitamin 1 tab PO DAILY 11/29/19 [History] Past Medical History - Past Health History Medical/Surgical History: Denies Medical/Surgical History Cardiovascular History: Reports: High Cholesterol, Hypertension Respiratory History: Reports: None Gastrointestinal History: Reports: Colon Polyp Genitourinary History: Reports: Prostate Disorder Musculoskeletal History: Reports: Osteoarthritis Psychiatric History: Reports: Anxiety Oncologic (Cancer) History: Reports: Prostate Other Oncologic History: last radiation 08/05/20 - Past Surgical History GI Surgical History: Reports: Colonoscopy Other GI Surgeries/Procedures: polyps removed during colonoscopy 11/23/19 Musculoskeletal Surgical History: Reports: Knee Replacement Oncologic Surgical History: Reports: Other (See Below) Social & Family History - Tobacco Use Tobacco Use Status *Q: Never Tobacco User - Caffeine Use Caffeine Use: Reports: None - Recreational Drug Use Recreational Drug Use: No - Living Situation & Occupation Living situation: Reports: , with Spouse Occupation: Retired ED ROS GENERAL - Review of Systems Review Of Systems: See Below Free Text/Narrative/Comment: In addition to that documented in the HPI above, the additional ROS was obtained: Constitutional: Denies fevers or chills Eyes: Denies vision changes ENMT: Denies sore throat CV: Denies chest pain Resp: Denies SOB GI: Per HPI : Denies painful urination MSK: Denies recent trauma Skin: Denies new rashes Neuro: Denies new numbness or tingling or weakness Endocrine: Denies unexpected weight loss Heme: Denies bleeding disorders ED EXAM, GI/ABD - Physical Exam Exam: See Below Text/Narrative:: I have reviewed the triage vital signs Const: Well nourished, well developed, appears stated age Eyes: Pupils Equal and reactive to light bilaterally, no conjunctival injection HENT: No signs of trauma or swelling, Neck supple without meningismus CV: Regular Rate Rhythm, Warm, well-perfused extremities RESP: Unlabored respiratory effort GI: Umbilical hernia palpated which is soft and easily reducible. Remainder of abdomen is soft, non-tender, non-distended, no masses MSK: No gross deformities appreciated Skin: Warm, dry. No rashes Neuro: Alert, casing soaker II-XII grossly intact. Sensation and motor function of extremities grossly intact. Psych: Appropriate mood and affect. Course - Vital Signs Last Recorded V/S: Last Vital Signs Temp 36.4 C 02/01/21 23:59 Pulse 87 02/01/21 23:59 Resp 18 02/01/21 23:59 BP 132/75 02/01/21 23:59 Pulse Ox 95 02/01/21 23:59 - Orders/Labs/Meds Labs: Laboratory Tests 02/02/21 02/02/21 02/02/21 Range/Units 00:37 00:43 00:43 WBC 7.77 (4.23-9.07) K/mm3 RBC 4.88 (4.63-6.08) M/mm3 Hgb 15.6 (13.7-17.5) gm/dl Hct 47.0 (40.1-51.0) % MCV 96.3 H (79.0-92.2) fl MCH 32.0 (25.7-32.2) pg MCHC 33.2 (32.2-35.5) g/dl RDW Std Deviation 47.0 H (35.1-43.9) fL Plt Count 136 L (163-337) K/mm3 MPV 10.3 (9.4-12.3) fl Neut % (Auto) 89.6 H (34.0-67.9) % Lymph % (Auto) 3.2 L (21.8-53.1) % Divide % (Auto) 6.4 (5.3-12.2) % Eos % (Auto) 0.4 L (0.8-7.0) Baso % (Auto) 0.1 (0.1-1.2) % Neut # (Auto) 6.96 H (1.78-5.38) K/mm3 Lymph # (Auto) 0.25 L (1.32-3.57) K/mm3 Divide # (Auto) 0.50 (0.30-0.82) K/mm3 Eos # (Auto) 0.03 L (0.04-0.54) K/mm3 Baso # (Auto) 0.01 (0.01-0.08) K/mm3 Manual Slide Review Sodium 140 (136-145) mEq/L Potassium 3.8 (3.5-5.1) mEq/L Chloride 106 (98-107) mEq/L Carbon Dioxide 22 (21-32) mEq/L Anion Gap 15.8 H (5-15) BUN 15 (7-18) mg/dL Creatinine 1.2 (0.7-1.3) mg/dL Est Cr Clr Drug Dosing 61.88 mL/min Estimated GFR (MDRD) > 60 (>60) mL/min BUN/Creatinine Ratio 12.5 L (14-18) Glucose 121 H (70-99) mg/dL Calcium 8.7 (8.5-10.1) mg/dL Total Bilirubin 0.8 (0.2-1.0) mg/dL AST 22 (15-37) U/L ALT 26 (16-63) U/L Alkaline Phosphatase 73 (46-116) U/L Total Protein 7.1 (6.4-8.2) g/dl Albumin 3.8 (3.4-5.0) g/dl Globulin 3.3 gm/dL Albumin/Globulin Ratio 1.2 (1-2) Lipase 128 (73-393) U/L SARS-CoV-2 RNA (GRACE) Negative (NEGATIVE) Meds: Medications Discontinued Medications Generic Name Dose Route Start Last Admin Trade Name Freq PRN Reason Stop Dose Admin Lactated Ringer's 1,000 mls @ 1,000 mls/hr 02/02/21 00:50 02/02/21 01:06 Ringers, Lactated IV 02/02/21 01:49 1,000 mls/hr .BOLUS ONE Administration Departure - Departure Time of Disposition: 01:49 Disposition: Home, Self-Care 01 Clinical Impression: Diarrhea Qualifiers: Diarrhea type: unspecified type Qualified Code(s): R19.7 - Diarrhea, unspecified - Discharge Information Instructions: Diarrhea, Adult Referrals: Karin Garduno PA-C [Primary Care Provider] - Forms: ED Department Discharge Additional Instructions: Use Zofran as needed for nausea/vomiting. Return to the emergency room if you develop significant abdominal pain. Otherwise, stay hydrated by drinking plenty of fluids to have electrolytes such as Gatorade, Powerade or Pedialyte. Sepsis Event Note (ED) - Evaluation Sepsis Screening Result: No Definite Risk - Focused Exam Vital Signs: Vital Signs Temp Pulse Resp BP Pulse Ox 02/01/21 23:59 36.4 C 87 18 132/75 95 - Assessment/Plan Assessment:: Patient is a 70-year-old male presenting to the emergency room with diarrhea. His abdominal exam was benign. Differential diagnosis considered for this patient include COVID-19, diverticulitis, colitis, strangulated hernia. Laboratory studies demonstrate slight thrombocytopenia but no leukocytosis. Electrolytes within normal limits. Patient did receive IV fluids with improvement of feelings of dehydration. At this point, he does not warrant any emergent imaging. He will be given Zofran for nausea at home. We will did recommend self quarantining as this could still be COVID-19 infection. Patient will follow up with primary care this upcoming week. Return precautions discussed as usual. Patient agrees with plan of care.
== END 2021-02-02 02:07 | disposition home or self-care (01) ==
LOC: JD.ED 23:48
DX: R19.7 Diarrhea, unspecified (principal); E78.00 Pure hypercholesterolemia, unspecified; I10 Essential (primary) hypertension; Z88.5 Allergy status to narcotic agent; Z88.8 Allergy status to other drugs, medicaments and biological substances; Z79.899 Other long term (current) drug therapy; Z20.822 Contact with and (suspected) exposure to COVID-19
CPT/HCPCS: 36415; 80053; 83690; 85025; 99284; J7120; U0002

== ENCOUNTER 2021-06-11 17:50 | Emergency (ER) | payer MEDICARE, OTHER | END 2021-06-11 19:33 | disposition home or self-care (01) | LOC: JD.ED 17:50 | DX: Z48.00 Encounter for change or removal of nonsurgical wound dressing (principal) | CPT/HCPCS: 99282; 99283 ==

== ENCOUNTER 2023-01-21 16:39 | Emergency (ER) | payer MEDICARE, OTHER ==
[2023-01-21] MEDS ORDERED: Ondansetron 4 MG Tab.DIS PO ONE (17:25)
[2023-01-21] MEDS ORDERED: Acetaminophen 325 MG Tab PO ONE (17:25)
[2023-01-21 18:00] LABS: INFLUENZA A NAA NEGATIVE (NEGATIVE); RESPIRATORY SYNCYTIAL VIR NAA NEGATIVE (NEGATIVE)
[2023-01-21 18:05] LABS: CORONAVIRUS COVID-19 NAA POSITIVE (NEGATIVE)
[2023-01-21] MEDS ORDERED: Ketorolac 30 MG/ML SDV IM ONE (19:23)
== END 2023-01-21 19:50 | disposition home or self-care (01) ==
LOC: JD.ED 16:39
DX: U07.1 COVID-19 (principal); E78.00 Pure hypercholesterolemia, unspecified; I10 Essential (primary) hypertension; Z88.5 Allergy status to narcotic agent; Z88.8 Allergy status to other drugs, medicaments and biological substances; Z79.899 Other long term (current) drug therapy
CPT/HCPCS: 0241U; 70450; 96372; 99284; A9270; J1885